=== PATIENT | female | born 1935 | race Caucasian/White ===

== ENCOUNTER → 2016-12-04 | Outpatient (CLI) | payer MEDICARE, BC ==
--- NOTE | ~2016-12-04 | US128 ---
[id number] [facility]. [facility] [address]. [place], [place] [address] [id number] O MR#: [id number] Acc #: [id number] NAME: NIGEL PUENTE : 1935 SEX: F STUDY DATE/TIME: 12/04/2016 13:25 UNIT: CGUS ROOM: STUDY DESCRIPTION: Thyroid Attending Physician: Oscar Beltran M.D. Referring Physician: Oscar Beltran M.D. Ordering Physician: Oscar Beltran M.D. Primary Care Physician: Irlanda Padilla M.D. MEDICAL IMAGING REPORT This report is preliminary unless electronic signature is present EXAM Thyroid ultrasound, 12/04/2016 HISTORY Followup thyroid nodules. Prior history of biopsy. FINDINGS Sonographic evaluation is performed of the thyroid gland in multiple planes. Comparison made with 09/27/2015. Right lobe measures 1.3 x 4.0 x 1.3 cm. Left lobe measures 1.3 x 3.4 x 1.1 cm. The isthmus is about 3 mm in thickness. There is a dominant, mixed-echogenicity nodule in the right thyroid lobe, which today measures about 1.0 x 0.6 x 1.0 cm. This previously measured 1.3 x 6.2 x 1.1 cm and does not appear significantly changed. A mixed-echogenicity, circumscribed solid lesion in the left mid thyroid lobe, with some probable internal calcification, remains stable at 4 x 3 x 4 mm. A second hypoechoic lesion in the left [id number] thyroid lobe measures 4 x 2 x 4 mm today. This is also unchanged. No definite new nodules. IMPRESSION Stable appearance of the gland. Continued surveillance recommended. Dictated by... Danny London Jr., M.D. THIS IS AN ELECTRONICALLY VERIFIED REPORT Danny London Jr., M.D. at 12/05/2016 6:58 PM MANASAK/arabella TD: 12/05/2016 14:45 JOB #: [id number] MEDICAL IMAGING REPORT Page 1 of 1 COPY
== END | disposition home or self-care (01) ==
LOC: CGUS 12:58
DX: E04.1 Nontoxic single thyroid nodule (principal)
CPT/HCPCS: 76536